=== PATIENT | female | born 2000 | race Two or more races ===

== ENCOUNTER → 2018-09-07 | Outpatient (REF) | payer OTHER | LOC: M SFHCLERA 10:52 | PROVIDERS: ATTEND Physician Assistant | DX: J02.9 Acute pharyngitis, unspecified (principal) ==

== ENCOUNTER → 2018-09-21 | Outpatient (REF) | payer OTHER | LOC: M SFHCLERA 11:55 | PROVIDERS: ATTEND Physician Assistant | DX: R50.9 Fever, unspecified (principal) ==

== ENCOUNTER 2019-11-16 17:17 | Emergency (ER) | payer OTHER ==
[~2019-11-16] VITALS: Ht 165.1 cm; Wt 109.4 kg
[2019-11-16 17:18] VITALS: BP 134/84
[2019-11-16] MEDS ORDERED: LIDOCAINE 1% MDV 20ML VIAL SC ONE (17:45)
== END 2019-11-16 18:23 | disposition home or self-care (01) ==
LOC: M ED 17:17
DX: S01.111A Laceration without foreign body of right eyelid and periocular area, initial encounter (principal); W01.0XXA Fall on same level from slipping, tripping and stumbling without subsequent striking against object, initial encounter; Y92.098 Other place in other non-institutional residence as the place of occurrence of the external cause

== ENCOUNTER 2019-11-21 09:25 | Emergency (ER) | payer OTHER ==
[~2019-11-21] VITALS: Ht 165.1 cm; Wt 109.0 kg
[2019-11-21 09:25] VITALS: BP 114/67
== END 2019-11-21 10:25 | disposition home or self-care (01) ==
LOC: M ED 09:25
DX: Z48.02 Encounter for removal of sutures (principal)